=== PATIENT | female | born 1950 | race Caucasian/White ===

== ENCOUNTER 2019-02-15 06:48 | Day surgery (SDC) | payer MEDICARE ==
[2019-02-15] MEDS ORDERED: Lactated Ringers 1,000 ML IV SCH (07:30)
[2019-02-15] MEDS ORDERED: Midazolam 1 MG/ML 2 ML SDV ONE (07:34)
[2019-02-15] MEDS ORDERED: fentaNYL 100 MCG/2 ML SDV ONE (07:34)
[2019-02-15] MEDS ORDERED: Propofol 200 MG/20 ML SDV ONE (07:34)
--- NOTE | 2019-02-15 11:48 | OR ---
DATE OF PROCEDURE: 02/15/2019 SURGEON: Francisco J Guzmán MD PREOPERATIVE DIAGNOSIS: Colon cancer screening. POSTOPERATIVE DIAGNOSIS: Diverticulosis, polyp 15 cm from the anal verge. PROCEDURE: Colonoscopy to the cecum with biopsy and then snare cautery polypectomy. ANESTHESIA: IV anesthesia with monitored anesthesia care. INDICATION: This 68-year-old white female is here for a screening colonoscopy. Her last colonoscopic exam she says was done over 10 years ago. I counseled her for the procedure, including risks and alternatives, and she gave her informed consent to proceed. DESCRIPTION OF PROCEDURE: The patient was placed in the left lateral decubitus position. IV anesthesia was administered by the Anesthesia Service. Time-out was held. A rectal exam was performed, which was unremarkable. The flexible video Olympus colonoscope was introduced through her anus, up her rectum, out her colon all the way to the cecum. En route, we saw a few scattered left-sided diverticula. There was no bleeding or inflammation associated with them. Once the cecum was reached, the scope was slowly withdrawn examining the mucosa throughout. No additional mucosal abnormalities were noted until we reached 15 cm from the anal verge. Here, we saw a polyp, we initially biopsied, it was too large to remove using this technique. A snare was passed about its base. It was elevated up away from the bowel wall and amputated as electrocautery was applied. The polyp fragment was grasped with biopsy forceps and removed. The scope was withdrawn further with no other new lesions noted. The scope was not retroflexed in the rectum, but it appeared unremarkable. The scope was removed. She tolerated the procedure well. Francisco J Guzmán MD /[id number]
== END 2019-02-15 11:06 | disposition home or self-care (01) ==
LOC: JP.SDS 06:48
PROVIDERS: ATTEND Surgery
DX: Z12.11 Encounter for screening for malignant neoplasm of colon (principal); D12.7 Benign neoplasm of rectosigmoid junction; K57.30 Diverticulosis of large intestine without perforation or abscess without bleeding; I25.10 Atherosclerotic heart disease of native coronary artery without angina pectoris; I65.29 Occlusion and stenosis of unspecified carotid artery; F17.200 Nicotine dependence, unspecified, uncomplicated; Z88.8 Allergy status to other drugs, medicaments and biological substances; Z86.73 Personal history of transient ischemic attack (TIA), and cerebral infarction without residual deficits
CPT/HCPCS: 45385; J2250; J2704; J3010; J7120; 88305

== ENCOUNTER 2024-07-20 07:24 | Day surgery (SDC) | payer MEDICARE ==
[2024-07-20] MEDS: Sodium Chloride 0.9% 10 ML Syringe FLUSH PRN (08:24)
== END 2024-07-20 09:32 | disposition home or self-care (01) ==
LOC: JP.SDS 07:24
PROVIDERS: ATTEND Ophthalmology
DX: H25.11 Age-related nuclear cataract, right eye (principal)
CPT/HCPCS: 66984; V2632; 00142-QZ

== ENCOUNTER 2024-08-17 06:23 | Day surgery (SDC) | payer MEDICARE ==
[2024-08-17] MEDS: Sodium Chloride 0.9% 10 ML Syringe FLUSH PRN (07:08)
== END 2024-08-17 08:51 | disposition home or self-care (01) ==
LOC: JP.SDS 06:23
PROVIDERS: ATTEND Ophthalmology
DX: H25.12 Age-related nuclear cataract, left eye (principal)
CPT/HCPCS: 66984; V2632; 00142-QZ